=== PATIENT | female | born 1960 ===

== ENCOUNTER → 2018-06-25 | Outpatient (CLI) | payer OTHER ==
[2018-06-25 09:38] LABS: CRP High Sensitivity 0.4 mg/dL (< 0.3); Uric Acid 3.9 mg/dL (2.6-6.0)
[2018-06-25 09:46] LABS: Folate (Folic Acid) 13.17 ng/mL (5.38-24)
== END | disposition home or self-care (01) ==
LOC: LAB 07:42
PROVIDERS: ATTEND Nurse Practitioner
DX: E78.5 Hyperlipidemia, unspecified (principal)
CPT/HCPCS: 36415; 82306; 82607; 82746; 83036; 83880; 84550; 85652; 86141